=== PATIENT | female | born 1955 | race Caucasian/White ===

== ENCOUNTER 2024-01-16 06:10 | Day surgery (SDC) | payer BC, MEDICARE ==
[2024-01-16] MEDS ORDERED: Glycopyrrolate 0.2 MG/ML 5 ML MDV IV ONE (06:11)
[2024-01-16] MEDS ORDERED: Propofol 200 MG/20 ML SDV IV ONE (06:11)
[2024-01-16] MEDS ORDERED: Sodium Chloride 0.9% 10 ML Syringe FLUSH PRN (06:15)
[2024-01-16] MEDS: Lactated Ringers 1,000 ML IV SCH (07:09)
[2024-01-16] MEDS: Simethicone Drops 40 MG/0.6 ML 30 ML Bottle ONE (07:34)
[2024-01-16 10:05] VITALS: BP 108/74; PULSE 102
== END 2024-01-16 09:19 | disposition home or self-care (01) ==
LOC: FB.SDS 06:10
PROVIDERS: ATTEND Surgery
DX: Z12.11 Encounter for screening for malignant neoplasm of colon (principal); D12.6 Benign neoplasm of colon, unspecified; K57.30 Diverticulosis of large intestine without perforation or abscess without bleeding; Z80.0 Family history of malignant neoplasm of digestive organs; I10 Essential (primary) hypertension; E78.5 Hyperlipidemia, unspecified; F32.A Depression, unspecified; Z79.82 Long term (current) use of aspirin; Z79.899 Other long term (current) drug therapy
CPT/HCPCS: 00811; 88305; A9270-GY; J2704; J3490; J7120

== ENCOUNTER 2025-01-19 07:08 | Day surgery (SDC) | payer MEDICARE ==
[~2025-01-19 07:08] MED LIST: Lactated Ringers 1,000 ML IV PRN
[2025-01-19] MEDS ORDERED: fentaNYL 100 MCG/2 ML SDV IV ONE (07:09)
[2025-01-19] MEDS ORDERED: Sodium Chloride 0.9% 10 ML Syringe IV ONE (07:09)
[2025-01-19] MEDS ORDERED: Ondansetron 4 MG/2 ML SDV IVPUSH ONE (07:09)
[2025-01-19] MEDS ORDERED: Midazolam 1 MG/ML 2 ML SDV IV ONE (07:09)
[2025-01-19] MEDS: Sodium Chloride 0.9% 10 ML Syringe FLUSH PRN (08:09)
[2025-01-19] MEDS: acetaZOLAMIDE 500 MG Cap.ER PO ONE (09:02)
[2025-01-19 09:28] VITALS: BP 114/61; PULSE 77
== END 2025-01-19 09:25 | disposition home or self-care (01) ==
LOC: FB.SDS 07:08
PROVIDERS: ATTEND Ophthalmology
DX: H25.813 Combined forms of age-related cataract, bilateral (principal); I12.9 Hypertensive chronic kidney disease with stage 1 through stage 4 chronic kidney disease, or unspecified chronic kidney disease; N18.31 Chronic kidney disease, stage 3a; H43.813 Vitreous degeneration, bilateral; H40.013 Open angle with borderline findings, low risk, bilateral; H04.123 Dry eye syndrome of bilateral lacrimal glands; H52.13 Myopia, bilateral
CPT/HCPCS: 00142; 66984; A9270; J2250; J2405; J3010; V2632

== ENCOUNTER 2025-02-02 07:48 | Day surgery (SDC) | payer MEDICARE ==
[2025-02-02] MEDS ORDERED: Midazolam 1 MG/ML 2 ML SDV IV ONE (07:49)
[2025-02-02] MEDS ORDERED: fentaNYL 100 MCG/2 ML SDV IV ONE (07:49)
[2025-02-02] MEDS ORDERED: Sodium Chloride 0.9% 10 ML Syringe IV ONE (07:49)
[2025-02-02] MEDS ORDERED: Ondansetron 4 MG/2 ML SDV IVPUSH ONE (07:49)
[2025-02-02] MEDS ORDERED: Lactated Ringers 1,000 ML IV PRN (08:00)
[2025-02-02] MEDS ORDERED: Sodium Chloride 0.9% 10 ML Syringe FLUSH PRN (08:00)
[2025-02-02] MEDS: acetaZOLAMIDE 500 MG Cap.ER PO ONE (09:46)
[2025-02-02 11:53] VITALS: BP 111/64; PULSE 85
== END 2025-02-02 10:00 | disposition home or self-care (01) ==
LOC: FB.SDS 07:48
PROVIDERS: ATTEND Ophthalmology
DX: H25.9 Unspecified age-related cataract (principal); I12.9 Hypertensive chronic kidney disease with stage 1 through stage 4 chronic kidney disease, or unspecified chronic kidney disease; N18.31 Chronic kidney disease, stage 3a; Z79.82 Long term (current) use of aspirin; Z79.899 Other long term (current) drug therapy
CPT/HCPCS: 00142; 66984; A9270; J2250; J2405; J3010; V2632